=== PATIENT | female | born 1975 | race African-American/Black ===

== ENCOUNTER 2023-06-08 17:42 | Emergency (ER) | payer SELFPAY ==
[~2023-06-08] VITALS: Ht 160 cm; Wt 68.0 kg
[2023-06-08 17:50] VITALS: TEMP 98.3; O2SAT 98
[2023-06-08] MEDS ORDERED: PSEUDOEPHEDRINE HCL 30MG TABLET PO ONE (18:15)
[2023-06-08] MEDS ORDERED: AMOXICILLIN 500 MG CAPSULE PO ONE (18:15)
[2023-06-08] MEDS ORDERED: AMOX-494 MT (18:17)
[2023-06-08] MEDS ORDERED: [UNRECOGNIZED DRUG - CODE] PO (18:17)
[2023-06-08 19:41] VITALS: BP 115/85; PULSE 83; RESP 16
== END 2023-06-08 19:43 | disposition home or self-care (01) ==
LOC: ER 17:42
DX: H66.91 Otitis media, unspecified, right ear (principal)
CPT/HCPCS: 81025; 99283